=== PATIENT | female | born 1990 | race African-American/Black ===

== ENCOUNTER 2018-05-23 21:08 | Emergency (ER) | payer OTHER ==
[~2018-05-23] VITALS: Ht 167.6 cm; Wt 154.2 kg
--- NOTE | ~2018-05-23 | EKG ---
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 : 1990 Requested By: Chantal Alejo Order Number: [id number] MD: Paul Griffith Measurements Intervals Gray Rate: 79 P: 47 WI: 175 QRS: 14 QRSD: 102 T: 202 QT: 386 QTc: 443 Interpretive Statements Sinus rhythm Left atrial enlargement LVH with secondary repolarization abnormality No previous ECG available for comparison Electronically Signed On 05-24-2018 8:12:33 CDT by Paul Griffith [email or web address] <ELECTRONICALLY SIGNED> By: Paul Griffith MD, [facility] 05/24/18 [id number] Paul Griffith MD, FACC /EPI
[2018-05-23 23:24] LABS: HEMATOCRIT 35.6 % (37.0-47.0); HEMOGLOBIN 11.1 gm/dL (12.0-15.0); MCH 21.1 pg (26.0-34.0); PLATELET COUNT 433 thou/uL (150-400); RBC 5.24 mil/uL (4.20-5.00); RDW 18.4 % (10.5-14.5); WBC 9.8 thou/uL (4.0-11.0)
[2018-05-23 23:25] LABS: URINE BILIRUBIN NEGATIVE (Negative); URINE BLOOD 3+ (Negative); URINE CLARITY CLEAR; URINE COLOR YELLOW; URINE GLUCOSE-RANDOM* NEGATIVE (Negative); URINE KETONES NEGATIVE (Negative); URINE LEUKOCYTES 1+ (Negative); URINE NITRITE NEGATIVE (Negative); URINE PROTEIN (DIPSTICK) NEGATIVE (Negative); URINE SPECIFIC GRAVITY 1.015 (1.005-1.035); URINE UROBILINOGEN 0.2 E.U./dl (0.2-1.0)
[2018-05-23 23:31] LABS: ANION GAP 6 mmol/L (7-16); BUN 14 mg/dL (7-18); CALCIUM 8.8 mg/dL (8.5-10.1); CHLORIDE 104 mmol/L (98-107); CO2 31 mmol/L (21-32); CREATININE 1.1 mg/dL (0.6-1.0); GLUCOSE 92 mg/dL (74-106); POTASSIUM 3.6 mmol/L (3.5-5.1); SODIUM 141 mmol/L (136-145)
[2018-05-23 23:40] LABS: CASTS None Seen /LPF (None Seen); MUCUS 0-3 Light strn/LPF (None Seen); SQUAMOUS >10 Many /LPF (0-3); URINE RBC >20 Many /HPF (0-2); URINE WBC 0-5 Rare /HPF (0-5)
[2018-05-23 23:41] LABS: CRYSTALS None Seen /LPF (None Seen)
[2018-05-23 23:41] LABS: SGOT 15 U/L (15-37); SGPT 23 U/L (30-65); TOTAL BILIRUBIN 0.1 mg/dL (<0.1-1.0); TOTAL PROTEIN 7.6 g/dL (6.4-8.2); TROPONIN-I <0.06 ng/mL (<0.06)
[2018-05-23 23:48] LABS: ABSOLUTE NEUTROPHILS 7.4 thou/uL (1.4-8.2); ANISOCYTOSIS 2+; HYPOCHROMASIA 2+; MICROCYTES 2+; POLYCHROMASIA 1+
[2018-05-23] MEDS ORDERED: NABUMETONE 750750 M1 PO (23:56)
[2018-05-23] MEDS ORDERED: ULTRAM 50MG TAB50 MG PO (23:56)
[2018-05-24 00:14] VITALS: BP 143/72
== END 2018-05-24 00:16 | disposition home or self-care (01) ==
LOC: ER 21:08
PROVIDERS: Physician Assistant
DX: R10.84 Generalized abdominal pain (principal); N93.9 Abnormal uterine and vaginal bleeding, unspecified; R11.2 Nausea with vomiting, unspecified; R19.7 Diarrhea, unspecified; I11.0 Hypertensive heart disease with heart failure; I50.9 Heart failure, unspecified; J45.909 Unspecified asthma, uncomplicated; E11.9 Type 2 diabetes mellitus without complications; F41.9 Anxiety disorder, unspecified; F32.9 Major depressive disorder, single episode, unspecified; F17.210 Nicotine dependence, cigarettes, uncomplicated; Z88.0 Allergy status to penicillin; Z88.8 Allergy status to other drugs, medicaments and biological substances